=== PATIENT | female | born 2000 | race Caucasian/White ===

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

== ENCOUNTER 2019-04-27 19:38 | Emergency (ER) | payer OTHER ==
[~2019-04-27] VITALS: Ht 165.1 cm; Wt 77.3 kg
[~2019-04-27 19:38] MED LIST changes: +HYDR-3715 PO; -NORCOTAB PO
--- NOTE | 2019-04-27 22:33 | REPVR ---
EXAM: XR Right Hip with Pelvis when Performed EXAM DATE/TIME: 04/27/2019 8:12 PM CLINICAL HISTORY: 19 years old, female; Hip pain; Right hip; Patient HX: Pain after running; Additional info: Pain for a year with no injury TECHNIQUE: Imaging protocol: XR Right hip with pelvis when performed. Views: 2 or 3 views. COMPARISON: CR Hip, Ap,Lat 06/06/2018 4:04 PM FINDINGS: Bones/joints: Normal. No acute fracture. Soft tissues: Normal. IMPRESSION: Negative right hip, unchanged from 06/06/2018. Electronically signed by: Jovany Alicea On 04/27/2019 22:32:59 PM
[2019-04-27 22:41] VITALS: BP 137/68
== END 2019-04-27 22:52 | disposition home or self-care (01) ==
LOC: M ED 19:38
DX: M76.31 Iliotibial band syndrome, right leg (principal)

== ENCOUNTER 2019-08-23 06:35 | Emergency (ER) | payer OTHER ==
[~2019-08-23] VITALS: Ht 165.1 cm; Wt 76.8 kg
[2019-08-23 07:43] LABS: BASO # 0.1 10^3/uL (0.0-0.2); BASO % 0.4 % (0.0-1.0); EOS % 0.3 % (0.0-3.0); HEMATOCRIT 40.7 % (36.0-47.0); HEMOGLOBIN 13.5 g/dl (12.0-15.5); LYMPH % 15.2 % (24.0-44.0); MEAN CORPUSCULAR HEMOGLOBIN 30.7 pg (27.0-33.0); MEAN CORPUSCULAR HGB CONC 33.2 g/dl (32.0-36.5); MEAN CORPUSCULAR VOLUME 92.5 fl (80.0-96.0); MONO # 1.1 10^3/uL (0.0-0.8); MONO % 7.9 % (0.0-5.0); NEUTROPHILS # 10.1 10^3/uL (1.5-8.5); NEUTROPHILS % 75.7 % (36.0-66.0); PLATELET COUNT, AUTOMATED 231 10^3/uL (150-450); WHITE BLOOD COUNT 13.3 10^3/uL (4.0-10.0)
[2019-08-23 08:48] LABS: ALBUMIN 3.6 GM/DL (3.2-5.2); ALT/SGPT 17 U/L (12-78); BILIRUBIN,DIRECT 0.1 MG/DL (0.0-0.2); BILIRUBIN,TOTAL 0.6 MG/DL (0.2-1.0); BLOOD UREA NITROGEN 6 MG/DL (7-18); CALCIUM LEVEL 9.2 MG/DL (8.5-10.1); CARBON DIOXIDE LEVEL 25 MEQ/L (21-32); CHLORIDE LEVEL 107 MEQ/L (98-107); CREATININE FOR GFR 0.68 MG/DL (0.55-1.30); GLUCOSE, FASTING 78 MG/DL (70-100); HCG, SERUM QUANTITATIVE 35048 MIU/ML; LIPASE 80 U/L (73-393); POTASSIUM SERUM 3.7 MEQ/L (3.5-5.1); SODIUM LEVEL 140 MEQ/L (136-145)
--- NOTE | 2019-08-23 10:13 | REP ---
EMERGENCY FIRST TRIMESTER OBSTETRIC SONOGRAPHY: HISTORY: Pelvic pain, positive hCG. FINDINGS: Transabdominal scanning confirms the presence of a single living intrauterine gestation. Embryonic pole measures 17 mm in crown-rump length. This corresponds with a gestational age estimate of 8 weeks 1 day. heart rate is recorded at 163 beats per minute. There is a small subchorionic hemorrhage measuring 2.1 x 2.2 x 1.4 cm to the right of the gestational sac. No extrauterine abnormalities observed. IMPRESSION: A single living intrauterine gestation at 8 weeks 1 day by crown-rump length. INGRID by sonography April 02, 2020. 2.2 cm subchorionic bleed to the right of the sac. Electronically Signed by Ej Borges MD 08/23/2019 12:45 P
[2019-08-23 10:59] VITALS: BP 133/73
== END 2019-08-23 11:00 | disposition home or self-care (01) ==
LOC: M ED 06:35
DX: Z32.01 Encounter for pregnancy test, result positive (principal); O20.8 Other hemorrhage in early pregnancy; Z3A.08 8 weeks gestation of pregnancy

== ENCOUNTER 2019-10-27 09:53 | Emergency (ER) | payer OTHER ==
[~2019-10-27] VITALS: Ht 165.1 cm; Wt 79.9 kg
[2019-10-27] MEDS ORDERED: prenatal vit (10:01)
[2019-10-27 12:37] VITALS: BP 129/62
[2019-10-27] MEDS ORDERED: KEFL500C17 PO (12:45)
== END 2019-10-27 12:51 | disposition home or self-care (01) ==
LOC: M ED 09:53
DX: O26.892 Other specified pregnancy related conditions, second trimester (principal); M54.5 Low back pain; O23.42 Unspecified infection of urinary tract in pregnancy, second trimester; Z3A.17 17 weeks gestation of pregnancy

== ENCOUNTER 2020-03-22 08:37 | Outpatient (CLI) | payer OTHER ==
[~2020-03-22] VITALS: Ht 165.1 cm; Wt 95.1 kg
[~2020-03-22 08:37] MED LIST changes: +KEFL500C17 PO; +prenatal vit
[2020-03-22] MEDS ORDERED: FLUCONAZOLE 50MG TABLET PO ONE (10:00)
== END 2020-03-22 10:16 | disposition home or self-care (01) ==
LOC: M LDO 08:37
PROVIDERS: ATTEND Advanced Practice Midwife
DX: O26.893 Other specified pregnancy related conditions, third trimester (principal); R10.30 Lower abdominal pain, unspecified; O23.593 Infection of other part of genital tract in pregnancy, third trimester; B37.3 Candidiasis of vulva and vagina; O47.1 False labor at or after 37 completed weeks of gestation; Z3A.38 38 weeks gestation of pregnancy
CPT/HCPCS: 59025; G0378; G0463

== ENCOUNTER 2020-03-30 19:25 | Outpatient (CLI) | payer OTHER ==
[~2020-03-30] VITALS: Ht 165.1 cm; Wt 97.5 kg
--- NOTE | 2020-03-30 22:21 | IPNPDOC ---
Text Note Date of Service The patient was seen on 03/30/20. NOTE LND Triage Note S: Yesenia is a 20yo at 39+4wks by 1TUS, EDC [id number], who presents to LND triage for labor check. She reports painful regular contractions since her clinic visit this morning in which her cervix was checked and membranes swept. She reports +FM and bloody show, denies LOF. She has no other concerns today. O: VSS, afebrile, normotensive FHR 140s, moderate variability, + accels, 1x early deceleration CTX by TOCO q2-4 minutes VE: 3/80/-2, membranes palpable A: Early labor, Category I FHT, reassuring status P: Pt discharge home with strict labor/return precautions Can return to triage for labor check as labor progresses f/u PRN VS,Fishbone, I+O VS, Fishbone, I+O Vital Signs Date Time Temp Pulse Resp B/P (MAP) Pulse Ox O2 Delivery O2 Flow Rate FiO2 03/30/20 20:03 98.3 ROSELIA CAGE CNM Mar 30, 2020 22:21
== END 2020-03-30 20:10 | disposition home or self-care (01) ==
LOC: M LDO 19:25
PROVIDERS: ATTEND Obstetrics & Gynecology
DX: O62.0 Primary inadequate contractions (principal); Z3A.39 39 weeks gestation of pregnancy

== ENCOUNTER 2020-03-30 22:04 | Inpatient (IN) | payer OTHER ==
[~2020-03-30] VITALS: Ht 165.1 cm; Wt 95.0 kg
[2020-03-30] MEDS ORDERED: LR 1,000 ML IV SCH (22:24)
[2020-03-30] MEDS ORDERED: LACTATED RINGER'S 1000 ML IV STA (22:24)
[2020-03-30 22:25] VITALS: BP 145/73
[2020-03-30 22:58] LABS: BASO # 0.1 10^3/uL (0.0-0.2); BASO % 0.3 % (0.0-1.0); EOS % 0.1 % (0.0-3.0); HEMATOCRIT 36.3 % (36.0-47.0); HEMOGLOBIN 12.4 g/dl (12.0-15.5); MEAN CORPUSCULAR HEMOGLOBIN 30.5 pg (27.0-33.0); MEAN CORPUSCULAR HGB CONC 34.2 g/dl (32.0-36.5); MEAN CORPUSCULAR VOLUME 89.4 fl (80.0-96.0); MONO # 1.1 10^3/uL (0.0-0.8); MONO % 6.6 % (0.0-5.0); NEUTROPHILS # 13.6 10^3/uL (1.5-8.5); NEUTROPHILS % 80.4 % (36.0-66.0); PLATELET COUNT, AUTOMATED 229 10^3/uL (150-450); RED BLOOD COUNT 4.06 10^6/uL (4.00-5.40); WHITE BLOOD COUNT 16.9 10^3/uL (4.0-10.0)
[2020-03-30] MEDS ORDERED: FENTANYL 2MCG/ML ROPIVACAINE 0.2% IN 0.9% NACL 100ML IVBAG As Ordered ONE (23:05)
[2020-03-30 23:24] VITALS: BP 138/67
[2020-03-30 23:30] LABS: ALT/SGPT 16 U/L (12-78); BILIRUBIN,TOTAL 0.4 MG/DL (0.2-1.0); CREATININE FOR GFR 0.74 MG/DL (0.55-1.30); GLOMERULAR FILTRATION RATE > 60.0 (>60); LDH LACTATE DEHYDROGENASE 134 U/L (84-246)
[2020-03-30 23:38] VITALS: BP 147/74
[2020-03-30 23:49] VITALS: BP 154/82
[2020-03-30 23:55] VITALS: BP 138/83
[2020-03-30 23:59] VITALS: BP 145/73
[2020-03-31] VITALS (20 sets, daily range): BP systolic 113–140; BP diastolic 54–98
[2020-03-31] MEDS ORDERED: LACTATED RINGER'S 1000 ML IV PRN
[2020-03-31] MEDS ORDERED: REFRIGERATOR IV KEYS XX PRN
[2020-03-31] MEDS ORDERED: FENTANYL/ROPIVACAINE/NACL BAG 100 ML EPIDURAL SCH
[2020-03-31] MEDS ORDERED: EPIDURAL COMMENT XX SCH
[2020-03-31] MEDS ORDERED: NALOXONE INJ 0.4MG/1ML VIAL (J2310 PER 1MG) IV PRN
[2020-03-31] MEDS ORDERED: ePHEDrine SULFATE 25 MG/5 ML(5MG/ML) SYRINGE IV PRN
[2020-03-31] MEDS ORDERED: ONDANSETRON 4MG/2ML VIAL IV PRN
[2020-03-31] MEDS ORDERED: EPIDURAL/PCA KEYS XX PRN
[2020-03-31] MEDS ORDERED: diphenhydrAMINE 50MG/ML VIAL (J1200) IV PRN
--- NOTE | 2020-03-31 00:18 | HPEPDOC ---
Obstetrical History & Physical General Date of Admission Mar 30, 2020 at 22:25 History of Present Illness S: Yesenia is a 20yo at 39+5 weeks admitted to [facility] for active labor at term. She was seen earlier yesterday evening in triage and was 3/80/-2 and sent home. She returned a few hours later with stronger contractions. She continues to report +FM. complicated by the following: Overweight and excessive weight gain + Quad screen for Trisomy 18, but no anomalies noted on US at [facility] - she did not complete [id number] Blood type is A Positive GBS is Negative HIV Negative 1hr Glucose 126 Chief Complaint: Contractions, term Information Provided By: Patient Age: 20 : 1 Term: 0 Pre-term: 0 Abortions: 0 Livin Dating Final EDC: Apr 02, 2020 Final EDC for Daily Update: Apr 02, 2020 Final EDC by: 1st trimester (US) Antepartum Course Height (inches): 65 Pre- weight (lbs.): 175 Admission Weight (lbs.): 209 Change in Weight (lbs.): 39 Past Medical History Past Obstetrical History : Past Obstetrical History: 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 ABDOMEN: Gravid and non-tender to touch. FETUS: Is vertex (VTX) by sterile vaginal examination (SVE). EFW 8lbs by Binta HEART RATE: Regular rate. LUNGS: Observed normal, nonlabored breathing. Other physical findings O: BP few mild range BP, no s/sx of Pre-E, afebrile FHR 130s, moderate variability, + accels, no decels noted CTX by TOCO: q2-3 VE by RN: 5/90/-1 Laboratory Data 24H LABS Laboratory Tests 2 03/30/20 22:28: Serology Scanned Report Hepatitis B Testing 03/30/20 22:48: Immature Granulocyte % (Auto) 0.6, Neutrophils (%) (Auto) 80.4H, Lymphocytes (%) (Auto) 12.0L, Monocytes (%) (Auto) 6.6H, Eosinophils (%) (Auto) 0.1, Basophils (%) (Auto) 0.3, Neutrophils # (Auto) 13.6H, Lymphocytes # (Auto) 2.0, Monocytes # (Auto) 1.1H, Eosinophils # (Auto) 0.0, Basophils # (Auto) 0.1, Nucleated Red Blood Cells % (auto) 0.0, Glomerular Filtration Rate > 60.0, Uric Acid 4.0, Total Bilirubin 0.4, Aspartate Amino Transf (AST/SGOT) 15, Alanine Aminotransferase (ALT/SGPT) 16, Lactate Dehydrogenase 134 CBC/BMP Laboratory Tests 03/30/20 22:48 Pertinent Laboratoy Data Blood Type: A+ RBC Antibody Screen: Negative HIV: Negative Hepatitis B: Negative Rapid Plasma Reagin: Nonreactive Rubella: Immune Varicella: Immune Chlamydia/Gonorrhea: Negative Group B Streptococcus: Negative Quad Screen Test: Positive (Trisomy 19, no [id number], negative US with PNC) Anatomy Ultrasound Ultrasound Date: Nov 24, 2019 Placenta Location: Posterior Normal Anatomy: Yes Placenta Previa: No Vaginal Examination Presentation: Cephalic presentation Assessment/Plan Assessment A: Yesenia is a 20yo at 39+5wks being admitted for active labor, Category I FHT. A Positive Blood type, GBS Negative. Plan P: Admit to LND, Consent for labor, augmentation, vaginal delivery and risk for section. PIV start, admission and Pre-E labs collected PO and IV hydration Epidural now for pain management CEFM x2 Close monitoring of maternal/ status Anticipate Consult with OB as indicated ROSELIA CAGE CNM Mar 31, 2020 00:18
[2020-03-31 00:59] LABS: CREATININE,RANDOM URINE 96.9 MG/DL; TOTAL PROTEIN,RANDOM URINE 18.1 MG/DL (0.0-12.0)
[2020-03-31] MEDS ORDERED: OXYTOCIN 30 UNITS IN 0.9% NaCl 500ML IV BAG (J2590) As Ordered ONE (02:46)
[2020-03-31] MEDS ORDERED: ACETAMINOPHEN 500 MG TAB PO PRN (04:00)
[2020-03-31] MEDS ORDERED: DOCUSATE SODIUM 100MG CAPSULE PO PRN (04:00)
[2020-03-31] MEDS ORDERED: ACETAMINOPHEN TAB 650MG DOSE (2X325MG) PO PRN (04:00)
[2020-03-31] MEDS ORDERED: DIBUCAINE 1% OINTMENT 30GM TOP PRN (04:00)
[2020-03-31] MEDS ORDERED: IBUPROFEN 600MG TAB PO PRN (04:00)
--- NOTE | 2020-03-31 04:05 | DNPDOC ---
[facility] Delivery Note Delivery Note DATE OF DELIVERY: 03/31/2020 at 0321 PREDELIVERY DIAGNOSIS: 39+5 weeks gestation and labor. POST DELIVERY DIAGNOSIS: Delivered. PROCEDURE: SPIDER ASSEMBLER: JEREMIAH Cage ANESTHESIA: Epidural ESTIMATED BLOOD LOSS: 150 mL. FINDINGS: 6 pound 8 ounce female , Score 8/9, right compound hand. DELIVERY SUMMARY: Called to room for imminent delivery of Yesenia, a 20yo G1 now P1001, who spontaneously progressed to C/C/+3. She effectively continued to push to deliver a viable female infant over a protected perineum. head delivered ORALIA and restituted to ROT; right compound hand noted at left shoulder. Left anterior shoulder delivered with ease, followed by right posterior s houlder, then remainder of infant body delivered to maternal abdomen where she was dried and stimulated. Once cord stopped pulsing, clamped x2 and cut by FOB. Placenta delivered spontaneously and appeared intact, 3VC. Pitocin bolus started and fundus noted to be firm; EBL 150mL. Upon inspection of vagina, perineum, and cervix, abrasion noted on right labia and shallow 1st degree noted at perineum, hemostasis achieved with pressure and no repair required. Family bonding well, anticipate uncomplicated PP course. ROSELIA CAGE CNM Mar 31, 2020 04:05
[2020-03-31] MEDS: IBUPROFEN 800 MG TAB PO PRN ×2 (05:49→13:30)
[2020-03-31] MEDS: PRENATAL VITAMINS CHEWABLE TABLET PO SCH (07:39)
[2020-03-31] MEDS ORDERED: LIDOCAINE 1% MDV 50ML VIAL As Ordered ONE (10:19)
[2020-04-01] MEDS: IBUPROFEN 800 MG TAB PO PRN ×2 (05:28→16:04)
[2020-04-01 06:00] VITALS: BP 128/60
--- NOTE | 2020-04-01 07:46 | IPNPDOC ---
Progress Note Date of Service: Apr 01, 2020 Day#: 1 Progress Note SUBJECT: Patient is a 20 yo S/P ppd #1. She has been ambulating, voi ding spontaneously without issue and tolerating regular diet. Breast feeding without issue. Reports lochia is like a normal period. plan for Norqd for contraceptive. OBJECTIVE: VITAL SIGNS: Within normal limits, afebrile. Alert and oriented times three. Abdomen: Fundus firm at U-2. Soft, NTTP. LE: no edema/erythema/tenderness A/P ppd #1, doing well. encourage bf. discussed contraceptive options. con leave paper work given. routine ppc. anticipate d/c home tomorrow. Le, DO VS, I&O, 24H, Fishbone Vital Signs/I&O Vital Signs Date Time Temp Pulse Resp B/P (MAP) Pulse Ox O2 Delivery O2 Flow Rate FiO2 04/01/20 06:00 98.3 84 18 128/60 (82) CANDIDA DAWN DO Apr 01, 2020 07:46
[2020-04-01] MEDS: PRENATAL VITAMINS CHEWABLE TABLET PO SCH (09:56)
[2020-04-01 18:00] VITALS: BP 131/60
[2020-04-02] MEDS: IBUPROFEN 800 MG TAB PO PRN ×2 (02:32→15:14)
[2020-04-02 06:00] VITALS: BP 131/75
[2020-04-02] MEDS ORDERED: DOCU100C16 PO (06:54)
[2020-04-02] MEDS ORDERED: IBUP80TA PO (06:54)
[2020-04-02] MEDS ORDERED: DIBU10OI TOP (06:54)
[2020-04-02] MEDS: PRENATAL VITAMINS CHEWABLE TABLET PO SCH (08:49)
--- NOTE | 2020-04-04 21:48 | DSES ---
DATE OF ADMISSION: 03/30/2020 DATE OF DISCHARGE: 04/02/2020 A 1, now para 1, admitted at 39 and 5 weeks of gestation in active labor. Had an epidural in place. Spontaneous vaginal delivery of a female, 6 pounds 8 ounces, scores of 8 and 9 at one and five minutes, respectively. On her second day, we discussed phlebitis, cystitis, mastitis, metritis, cellulitis, diet, exercise, pain management, and perineal, breast, and wound care. The rest of the examination unremarkable. Normocephalic, atraumatic. Neck: Full range of motion. Pupils equal and reactive to light. Distal pulses are symmetric. No evidence of deep vein thrombosis (DVT), pulmonary embolism (PE), or superficial phlebitis. Chest is clear bilaterally to bases. No wheezes or rhonchi. No costovertebral angle (CVA) tenderness. Abdomen soft. Uterus 2 below. Four-quadrant bowel sounds are noted. Lochia is normal. She had a little bit of a vaginal laceration, which was controlled by just pressure. She is passing gas, voiding, and no other issues. She has no rashes, lesions, or pruritus. No arthralgia, myalgia. No complaint of joint pain. No cough, wheeze, shortness breath, or dyspnea on exertional. No nausea, vomiting. No diarrhea or constipation. Her admitting hemoglobin was 12.4, hematocrit 36.3, and platelets 229. Her discharge vital signs: Blood pressure 131/75, respirations 18, pulse 87, temperature 98.3. The patient will have a 6-week checkup at [facility] and will pick up man her medications at [facility]/ SUMMARY: Term gestation. Delivered a live- female infant. Discharged improved.
== END 2020-04-02 18:32 | disposition home or self-care (01) | DRG 807 ==
LOC: M LDO 22:04 → M LDI 22:25 → M OBS 03-31 05:45
PROVIDERS: ADMIT Registered Nurse Maternal Newborn; ATTEND Registered Nurse Maternal Newborn
PROC: 10E0XZZ Delivery of Products of Conception, External Approach (ICD-10-PCS; principal; 2020-03-31)
DX: O26.00 Excessive weight gain in pregnancy, unspecified trimester (principal); Z37.0 Single live birth; Z3A.39 39 weeks gestation of pregnancy; O70.0 First degree perineal laceration during delivery

== ENCOUNTER → 2020-07-10 | Outpatient (CLI) | payer OTHER ==
[~2020-07-10] MED LIST changes: +DIBU10OI TOP; +DOCU100C16 PO; +IBUP80TA PO
== END ==
LOC: M LABSMTC 10:56
PROVIDERS: ATTEND Family Medicine
DX: Z20.828 Contact with and (suspected) exposure to other viral communicable diseases (principal)
CPT/HCPCS: C9803; U0003

== ENCOUNTER 2021-01-15 08:13 | Emergency (ER) | payer OTHER ==
[~2021-01-15] VITALS: Ht 165.1 cm; Wt 98.1 kg
[~2021-01-15 08:13] MED LIST changes: -DIBU10OI TOP; +DIBU28OI2 TOP
[2021-01-15] MEDS ORDERED: NS 1,000 ML IV ONE (09:15)
[2021-01-15] MEDS ORDERED: ACETAMINOPHEN 500 MG TAB PO ONE (10:10)
[2021-01-15 10:17] LABS: BASO # 0.1 10^3/uL (0.0-0.2); BASO % 0.5 % (0.0-1.0); EOS # 0.1 10^3/uL (0.0-0.5); EOS % 0.5 % (0.0-3.0); HEMATOCRIT 43.6 % (36.0-47.0); HEMOGLOBIN 14.4 g/dl (12.0-15.5); LYMPH # 2.6 10^3/uL (1.5-5.0); LYMPH % 27.9 % (24.0-44.0); MEAN CORPUSCULAR HEMOGLOBIN 29.4 pg (27.0-33.0); MONO # 0.7 10^3/uL (0.0-0.8); NEUTROPHILS # 5.9 10^3/uL (1.5-8.5); NEUTROPHILS % 63.6 % (36.0-66.0); PLATELET COUNT, AUTOMATED 264 10^3/uL (150-450); WHITE BLOOD COUNT 9.2 10^3/uL (4.0-10.0)
[2021-01-15 10:50] LABS: RSV AMPLIFICATION NEGATIVE (NEGATIVE)
[2021-01-15 10:51] LABS: ALT/SGPT 21 U/L (12-78); BILIRUBIN,TOTAL 0.6 MG/DL (0.2-1.0); BLOOD UREA NITROGEN 11 MG/DL (7-18); CALCIUM LEVEL 9.3 MG/DL (8.5-10.1); CARBON DIOXIDE LEVEL 28 MEQ/L (21-32); CHLORIDE LEVEL 107 MEQ/L (98-107); CK-MB VALUE MASS < 1.0 NG/ML (<3.6); CPK CREATINE PHOSPHOKINASE 155 U/L (26-192); CREATININE FOR GFR 0.73 MG/DL (0.55-1.30); GLOMERULAR FILTRATION RATE > 60.0 (>60); GLUCOSE, FASTING 90 MG/DL (70-100); HCG, SERUM QUANTITATIVE < 1.0 MIU/ML; MB/CK RELATIVE INDEX 0.65 (< OR =4); POTASSIUM SERUM 4.3 MEQ/L (3.5-5.1); SODIUM LEVEL 140 MEQ/L (136-145); TOTAL PROTEIN 7.6 GM/DL (6.4-8.2); TROPONIN I < 0.02 NG/ML (< 0.10)
--- NOTE | 2021-01-15 10:59 | ECGEPIP ---
[facility] - ED Test Date: 2021-01-15 Pat Name: MEE ESQUIVEL Department: Room: - Gender: Female Hand Alterations Tailor: : 2000 Requested By: NANCY Dominguez PA-C Order Number: [id number] Reading MD: Ric Vences Measurements Intervals [place] Rate: 60 P: 32 ID: [id number] QRS: 66 QRSD: 82 T: 43 QT: 440 QTc: 440 Interpretive Statements Normal sinus rhythm BENIGN EARLY REPOLARIZATION NO PRIORS FOR COMPARISON Electronically Signed on 01-15-2021 10:59:09 EDT by Ric Vences
--- NOTE | 2021-01-15 11:16 | REP ---
INDICATION: INTERMITTENT DIZZINESS COMPARISON: None. TECHNIQUE: PA and lateral. FINDINGS: The mediastinum and cardiac silhouette are normal. The lung jc are clear and without acute consolidation, effusion, or pneumothorax. The skeletal structures are intact and normal. IMPRESSION: No acute cardiopulmonary process. <Electronically signed by Darren Strickland > 01/15/21 1117
[2021-01-15 11:19] LABS: APPEARANCE, URINE CLEAR (CLEAR); BACTERIA, URINE AUTO NEGATIVE (NEGATIVE); BILIRUBIN, URINE AUTO NEGATIVE (NEGATIVE); BLOOD, URINE BLOOD NEGATIVE (NEGATIVE); COLOR, URINE STRAW (YELLOW); GLUCOSE, URINE (UA) AUTO NEGATIVE (NEGATIVE); KETONE, URINE AUTO NEGATIVE (NEGATIVE); LEUKOCYTE ESTERASE, URINE AUTO NEGATIVE (NEGATIVE); NITRITE, URINE AUTO NEGATIVE (NEGATIVE); PROTEIN, URINE AUTO NEGATIVE (NEGATIVE); RBC, URINE AUTO 0 /HPF (0-3); SPECIFIC GRAVITY URINE AUTO 1.006 (1.002-1.035); SQUAMOUS EPITHELIAL CELL UR AU 0 /HPF (0-6); UROBILINOGEN, URINE AUTO 0.2 mg/dL (0.0-2.0); WBC, URINE AUTO 0 /HPF (0-3)
[2021-01-15] MEDS ORDERED: MECL-86 PO (12:12)
[2021-01-15 12:31] VITALS: BP 119/62
== END 2021-01-15 12:33 | disposition home or self-care (01) ==
LOC: M ED 08:13
DX: R42 Dizziness and giddiness (principal)

== ENCOUNTER → 2021-01-18 | Outpatient (CLI) | payer SELFPAY ==
[~2021-01-18] MED LIST changes: +MECL-86 PO
== END ==
LOC: M LABSMTC 09:28
PROVIDERS: ATTEND Pediatrics
DX: Z20.822 Contact with and (suspected) exposure to COVID-19 (principal)